=== PATIENT | male | born 1950 | race Caucasian/White ===

== ENCOUNTER 2018-09-01 15:40 | Emergency (ER) | payer MEDICARE, OTHER ==
[~2018-09-01] VITALS: Wt 109.3 kg
[2018-09-01 15:44] VITALS: BP 131/92; PULSE 51; RESP 18
--- NOTE | 2018-09-01 18:35 | ERD ---
ER Documentation Chief Complaint Chief Complaint SENT FOR R/O LEFT LG DVT HPI Patient is a 68-year-old male with hypertension who presents with lower extremity pain on the left leg. The patient was sent in for an ultrasound to rule out DVT. The patient has had pain in his right leg since May. He describes the pain as a 2-6 out of 10. He said the right leg is more swollen than the left. His primary doctor is Dr. Flowers. ROS All systems reviewed and are negative except as per history of present illness. PMhx/Soc Medical and Surgical Hx: pt denies Medical Hx, pt denies Surgical Hx Hx Alcohol Use: No Hx Substance Use: No Hx Tobacco Use: No Smoking Status: Never smoker FmHx Family History: No diabetes Physical Exam Vitals Vital Signs Date Temp Pulse Resp B/P (MAP) Pulse Ox O2 O2 Flow FiO2 Time Delivery Rate 09/01/18 98.1 51 18 131/92 99 15:44 (105) Physical Exam Const: No acute distress Head: Atraumatic Eyes: Normal Conjunctiva ENT: Normal External Ears, Nose and Mouth. Neck: Full range of motion. No meningismus. Resp: Clear to auscultation bilaterally Cardio: Regular rate and rhythm, no murmurs Abd: Soft, non tender, non distended. Normal bowel sounds Skin: No petechiae or rashes Back: No midline or flank tenderness Ext: No cyanosis, or edema Neur: Awake and alert Psych: Normal Mood and Affect Procedures/MDM Ultrasound of the bilateral lower extremities were negative for DVT per radiology. Patient is a 5-year-old male presents with left leg pain. Ultrasound of the right and left leg were negative for DVT. I do not believe he requires further workup or admission to the hospital. I offered him a prescription for ibuprofen which he refused. The patient will be discharged but should follow-up with his primary doctor within 1 week. He has had no trauma and I doubt fracture dislocation. He has no sign of infection. There are no signs of ischemia. Departure Diagnosis: Primary Impression: Pain of left leg Condition: Fair Patient Instructions: Leg Spasm, Pain, Uncertain Cause (Acute) Referrals: DEB FLOWERS MD (PCP) Additional Instructions: Call your primary care doctor TOMORROW for an appointment during the next 1 WEEK.Tell the [facility] blind [facility] that you were referred from this facility.See the doctor sooner or return here if your condition worsens before your appointment time. REINALDO JALLOH MD Sep 01, 2018 18:35
== END 2018-09-01 17:16 | disposition home or self-care (01) ==
LOC: E/R 15:40
DX: M79.605 Pain in left leg (principal); I10 Essential (primary) hypertension
CPT/HCPCS: 93970